=== PATIENT | male | born 1990 | race Caucasian/White ===

== ENCOUNTER 2017-01-12 11:56 | Emergency (ER) | payer OTHER ==
[~2017-01-12] VITALS: Ht 170.2 cm; Wt 131.5 kg
[~2017-01-12 11:56] MED LIST: BACTDS PO; CEPH-443 PO; HYDR-906 PO
[2017-01-12 12:03] VITALS: Ht 170.2 cm; Wt 131.5 kg
--- NOTE | 2017-01-12 13:51 | ERD ---
ER Documentation Chief Complaint Date/Time DATE: 01/12/17 TIME: 13:46 Chief Complaint Pt R foot big toe pain X 1 week. had ingrown toe nail removed. HPI 26-year-old male with a history of ingrown toenail presents the emergency department for complaints of right great toe pain, inflammation, and discharge. Patient states he was seen and evaluated at this emergency department a few months prior and underwent a partial nail removal. Patient states his symptoms somewhat improved however over the past week his symptoms have gradually returned. He currently reports a constant sharp 7 out of 10 nonradiating pain isolated to the right great toe which is worse with ambulation or pressure to the area. He has attempted to treat his symptoms with Tylenol with only mild relief. He denies any fever, chills, nausea, vomiting, weakness, numbness or tingling. ROS All systems reviewed and are negative except as per history of present illness. Medications Home Meds Active Scripts Naproxen* (Naprosyn*) 500 Mg Tablet, 500 MG PO BID for 7 Days, TAB Prov:DEJAH CHANCE PA-C 01/12/17 Cephalexin* (Cephalexin* Susp) 250 Mg/5 Ml Susp.recon, 500 MG PO Q8, #1 BOTTLE Prov:DEJAH CHANCE PA-C 01/12/17 Bacitracin* (Bacitracin Oint (UD)*) 1 Applic Oint, 1 APPLIC TOP ONCE for 7 Days , PKT APPLY TO Prov:DEJAH CHANCE PA-C 01/12/17 Hydrocodone/Acetaminophen ([place] 5-325 Tablet) 1 Each Tablet, 1 TAB PO Q6H Y for PAIN, #20 TAB Prov:VIC MATOS PA-C 04/28/16 Cephalexin* (Keflex*) 500 Mg Capsule, 500 MG PO QID for 7 Days, CAP Prov:VIC MATOS PA-C 04/28/16 Sulfamethoxazole-Trimethoprim* (Bactrim* DS) 800-160 Mg Tab, 1 TAB PO BID for 7 Days, TAB Prov:VIC MATOS PA-C 04/28/16 Allergies Allergies: Coded Allergies: No Known Allergy (Unverified , 01/12/17) PMhx/Soc Medical and Surgical Hx: pt denies Medical Hx, pt denies Surgical Hx Hx Alcohol Use: Yes (occassionally) Hx Substance Use: Yes (occassionally marijuana ) Hx Tobacco Use: No Smoking Status: Never smoker Physical Exam Vitals Vital Signs Date Time Temp Pulse Resp B/P Pulse Ox O2 Delivery O2 Flow Rate FiO2 01/12/17 12:03 97.6 77 16 130/91 99 Physical Exam Const: Well developed, well-nourished, no acute distress Head: Atraumatic Eyes: Normal Conjunctiva ENT: Normal External Ears, Nose and Mouth. Neck: Full range of motion..~ No meningismus. Resp: Clear to auscultation bilaterally Cardio: Regular rate and rhythm, no murmurs Skin: Erythema and swelling surrounding the medial aspect right great toe. Active purulent discharge. Tenderness to palpation. Nearly full nail intact. No petechiae or rashes Back: No midline or flank tenderness Ext: No cyanosis, or edema Neur: Awake and alert Psych: Normal Mood and Affect Results 24 hrs Current Medications Medications (Trade) Dose Ordered Sig/Toshia Route PRN Reason Start Time Stop Time Status Last Admin Dose Admin Lidocaine (Xylocaine 1% (Mdv) 20 ml) 20 ml ONCE ONCE SC 01/12/17 14:00 01/12/17 14:01 DC Ibuprofen (Motrin) 600 mg ONCE ONCE PO 01/12/17 14:00 01/12/17 14:01 DC 01/12/17 14:11 Bacitracin (Bacitracin Oint (Ud)) 1 applic ONCE ONCE TOP 01/12/17 15:00 01/12/17 15:01 Procedures/MDM This is an otherwise healthy 26-year-old male with a history of an ingrown toenail who presents the emergency department for complaints of recurrent pain, swelling, erythema and discharge along the nailbed of the right great toe. Physical exam with evidence of ingrown toenail with infection. Toenail Removal by me: Anesthesia: 1% lidocaine Digital Block Location: Right great toenail Technique: from nail bed, vertical split, twisting towards remaining nail. Packing: Non-adherent dressing applied Complications: None Recommend bid dressing changes and warm water soaks. Patient received antibiotic topical ointment as well and given return precautions. Based on patient's history of present illness and physical examination the decision was made to discharge. The patient was re-evaluated after ED treatment and stabilizing measures, and symptoms have improved. There is no evidence of life threatening injuries or illnesses at this time. On re-examination, patient resting in no distress, stable vital signs, reports feeling better and safe for discharge with outpatient follow up with PMD in 1-2 days. Patient given return precautions. DEJAH CHANCE PA-C Jan 12, 2017 13:50
[2017-01-12] MEDS ORDERED: LIDOCAINE 1% (MDV) 20 ML INJ SC ONE (14:00)
[2017-01-12] MEDS ORDERED: IBUPROFEN 600 MG TAB PO ONE (14:00)
[2017-01-12] MEDS ORDERED: BACITUD TOP (14:42)
[2017-01-12] MEDS ORDERED: CEPH250S33 PO (14:42)
[2017-01-12] MEDS ORDERED: NAPR-260 PO (14:42)
[2017-01-12] MEDS ORDERED: BACITRACIN 0.9 GM OINT TOP ONE (15:00)
== END 2017-01-12 14:59 | disposition home or self-care (01) ==
LOC: FTE 11:56
DX: L60.0 Ingrowing nail (principal)
CPT/HCPCS: 11765; Z7502; Z7610

== ENCOUNTER 2017-11-28 09:43 | Emergency (ER) | END 2017-11-28 10:53 | disposition home or self-care (01) ==

== ENCOUNTER 2018-05-21 10:48 | Emergency (ER) | END 2018-05-21 13:31 | disposition home or self-care (01) ==